=== PATIENT | female | born 1980 | race Caucasian/White ===

== ENCOUNTER 2016-11-04 20:29 | Emergency (ER) | payer BC ==
[~2016-11-04] VITALS: Ht 175.3 cm; Wt 79.5 kg
[~2016-11-04 20:29] MED LIST: BCP TD; CITALOPRAM20 MG PO; TOPROL XL100 MG PO
[2016-11-04 20:34] VITALS: BP 123/68; TEMP 97.9
[2016-11-04] MEDS ORDERED: PRENATAL1 TA7 PO (20:37)
[2016-11-04 21:24] LABS: BASO % 0.3 % (0.0-2.0); EOS # 0.1 (0.0-0.7); EOS % 0.9 % (0-4.0); GRAN # 8.1 (1.4-6.5); GRAN % 67.7 % (42.2-75.2); HEMATOCRIT 38.1 % (37.0-47.0); HEMOGLOBIN 13.2 g/dl (12.5-16.0); LYMPH # 2.6 (1.2-3.4); LYMPH % 21.9 % (20.0-51.0); MEAN CELL VOLUME 85 fl (80.0-100.0); MEAN CORPUSCULAR HEMOGLOBIN 29 pg (27.0-31.0); MEAN CORPUSCULAR HGB CONC 35 g/dl (33.0-37.0); MEAN PLATELET VOLUME 9.9 fl (7.4-10.4); MONO % 8.5 % (1.7-9.3); PLATELET COUNT 235 K/mm3 (130-400); RED BLOOD COUNT 4.51 M/mm3 (4.10-5.30); REDCELL DISTRIBUTION WIDTH-CV 11.7 % (11.5-14.5); WHITE BLOOD COUNT 11.9 K/mm3 (4.8-10.8)
[2016-11-04 21:30] LABS: PH 6 (5-8); SQUAMOUS EPITHELIAL 0-2 /hpf; URINE APPEARANCE Clear; URINE BACTERIA None Seen /hpf; URINE BILIRUBIN Negative (NEGATIVE); URINE BLOOD 2+ (NEGATIVE); URINE COLOR Straw; URINE GLUCOSE Negative (NEGATIVE); URINE KETONE Negative (NEGATIVE); URINE RBC 0-2 /hpf; URINE UROBILINOGEN Negative (NEGATIVE); URINE WBC 0-2 /hpf
[2016-11-04 23:56] VITALS: PULSE 65
== END 2016-11-04 23:58 | disposition home or self-care (01) ==
LOC: COL.ER 20:29
PROVIDERS: Emergency Medicine
DX: O20.0 Threatened abortion (principal); Z3A.09 9 weeks gestation of pregnancy

== ENCOUNTER 2017-02-09 15:34 | Outpatient (CLI) | payer BC ==
[~2017-02-09] VITALS: Ht 172.7 cm; Wt 88.6 kg
[~2017-02-09 15:34] MED LIST changes: +PRENATAL1 TA7 PO
[2017-02-09 15:49] VITALS: BP 119/82; PULSE 105; TEMP 98.3
[2017-02-09 16:45] VITALS: BP 124/72; PULSE 91; TEMP 98.6
== END 2017-02-09 17:05 | disposition short-term general hospital (02) ==
LOC: LDRO 15:34
DX: O99.342 Other mental disorders complicating pregnancy, second trimester (principal); F41.8 Other specified anxiety disorders; R00.2 Palpitations; Z3A.22 22 weeks gestation of pregnancy
CPT/HCPCS: J0290; J0702; J1364; J7120

== ENCOUNTER 2018-03-24 11:39 | Outpatient (CLI) | payer BC ==
[~2018-03-24] VITALS: Ht 172.7 cm; Wt 114.5 kg
[2018-03-24] MEDS ORDERED: LEXAPRO 10MG10 MG PO (11:42)
[2018-03-24 12:20] VITALS: BP 131/81; PULSE 82
[2018-03-24 13:30] VITALS: BP 137/75; PULSE 88
[2018-03-24 14:47] VITALS: BP 124/73; PULSE 75
== END 2018-03-24 14:45 | disposition home or self-care (01) ==
LOC: LDRO 11:39
DX: O34.33 Maternal care for cervical incompetence, third trimester (principal); Z3A.37 37 weeks gestation of pregnancy

== ENCOUNTER 2018-03-24 16:11 | Inpatient (IN) | payer BC ==
[~2018-03-24] VITALS: Ht 172.7 cm; Wt 114.5 kg
[2018-03-24] VITALS (28 sets, daily range): BP systolic 109–147; BP diastolic 58–89; PULSE 75–106; TEMP 98.3
[~2018-03-24 16:11] MED LIST changes: +LEXAPRO 10MG10 MG PO
[2018-03-24 17:09] LABS: BASO # 0.1 (0.0-0.2); BASO % 0.3 % (0.0-2.0); EOS # 0.1 (0.0-0.7); EOS % 0.7 % (0-4.0); GRAN # 13.1 (1.4-6.5); GRAN % 76.7 % (42.2-75.2); HEMATOCRIT 37.3 % (37.0-47.0); HEMOGLOBIN 12.8 g/dl (12.5-16.0); LYMPH # 2.2 (1.2-3.4); MEAN CELL VOLUME 87 fl (80.0-100.0); MEAN CORPUSCULAR HEMOGLOBIN 30 pg (27.0-31.0); MEAN CORPUSCULAR HGB CONC 34 g/dl (33.0-37.0); MEAN PLATELET VOLUME 10.7 fl (7.4-10.4); MONO # 1.3 (0.1-0.6); MONO % 7.5 % (1.7-9.3); PLATELET COUNT 233 K/mm3 (130-400)
[2018-03-25] VITALS (16 sets, daily range): BP systolic 102–155; BP diastolic 56–95; PULSE 76–122; TEMP 98.1–98.6
[2018-03-26 10:50] VITALS: BP 110/82; PULSE 82; TEMP 98.8
[2018-03-26 21:00] VITALS: BP 116/62; PULSE 77; TEMP 98.1
[2018-03-27 08:30] VITALS: BP 110/77; PULSE 89; TEMP 97.6
[2018-03-27] MEDS ORDERED: MOTRIN 800800 MG/TAB PO (08:43)
== END 2018-03-27 17:15 | disposition home or self-care (01) | DRG 807 ==
LOC: LDRO 16:11 → LDR 16:21 → OB 03-25 05:29
PROVIDERS: Obstetrics & Gynecology
PROC: 10E0XZZ Delivery of Products of Conception, External Approach (ICD-10-PCS; principal; 2018-03-25)
PROC: 0KQM0ZZ Repair Perineum Muscle, Open Approach (ICD-10-PCS; 2018-03-25)
PROC: 0UQGXZZ Repair Vagina, External Approach (ICD-10-PCS; 2018-03-25)
DX: O70.1 Second degree perineal laceration during delivery (principal); Z37.0 Single live birth; Z3A.37 37 weeks gestation of pregnancy; O69.81X0 Labor and delivery complicated by cord around neck, without compression, not applicable or unspecified; O99.344 Other mental disorders complicating childbirth; F41.8 Other specified anxiety disorders
CPT/HCPCS: J2590; J2795; J7120

== ENCOUNTER → 2024-01-24 | Outpatient (CLI) | payer BC ==
[~2024-01-24] MED LIST changes: +MOTRIN 800800 MG/TAB PO
== END ==
LOC: MC.RAD 10:47
DX: Z12.31 Encounter for screening mammogram for malignant neoplasm of breast (principal)